=== PATIENT | female | born 1940 | race Caucasian/White ===

== ENCOUNTER → 2018-01-01 | Outpatient (CLI) | payer OTHER | LOC: CAT 11:08 | DX: R91.8 Other nonspecific abnormal finding of lung field (principal); K76.89 Other specified diseases of liver; M47.816 Spondylosis without myelopathy or radiculopathy, lumbar region; M51.36 Other intervertebral disc degeneration, lumbar region ==

== ENCOUNTER → 2018-01-02 | Outpatient (CLI) | payer OTHER | LOC: CAT 12:41 | DX: J47.9 Bronchiectasis, uncomplicated (principal); J98.4 Other disorders of lung; R91.8 Other nonspecific abnormal finding of lung field ==

== ENCOUNTER → 2018-01-14 | Outpatient (CLI) | payer OTHER ==
[2018-01-14 10:09] LABS: CREATININE 0.9 mg/dL (0.6-1.0)
== END ==
LOC: CAT 09:02
PROVIDERS: Internal Medicine Pulmonary Disease
DX: J32.2 Chronic ethmoidal sinusitis (principal); J32.3 Chronic sphenoidal sinusitis; J47.9 Bronchiectasis, uncomplicated; R91.8 Other nonspecific abnormal finding of lung field; M19.041 Primary osteoarthritis, right hand; M19.042 Primary osteoarthritis, left hand; R05 Cough

== ENCOUNTER → 2018-04-22 | Outpatient (CLI) | payer OTHER | LOC: CAT 08:28 | DX: J84.10 Pulmonary fibrosis, unspecified (principal); J47.9 Bronchiectasis, uncomplicated; K76.9 Liver disease, unspecified; R91.8 Other nonspecific abnormal finding of lung field ==

== ENCOUNTER 2018-05-09 05:24 | Outpatient (CLI) | payer OTHER ==
[~2018-05-09] VITALS: Ht 165.1 cm; Wt 54.4 kg
[~2018-05-09 05:24] MED LIST: ALLEGRA ALLERG180 MG PO; ASPIR 8181 MG PO; CALCIUM 600 +1 EAC1 PO; CARDIO TEA1 EACH PO; CENTRUM SILVER1 EAC6 PO; CITRACAL + D E1 EACH PO; FISH OIL 1,001000 M2 PO; FLONASE 0.05%50 MCG NASAL; MAXZIDE-25 MG1 EACH PO; NORVASC5 MG PO; PROLIA60 MG/1 ML SUBQ; ROBITUSSIN-COU237 ML PO; VITAMIN D2000 UNIT PO; VITAMINC500 PO
[2018-05-09 12:34] VITALS: BP 145/61
--- NOTE | 2018-05-09 18:45 | O ---
[facility] [place] [address] OPERATIVE REPORT Name: RENAE ORANTES Room #: DEP MICHAEL [facility]#: [id number] Admission: 05/09/18 ������������������ Attend Phys: Jorge Luis Bryant MD Discharge: 05/09/18 ������������������ Date of : 40 Report #: [id number] THIS REPORT FOR: //name// CC: Kelin Bryant DATE OF SERVICE: 05/09/2018 CLINICAL HISTORY: A 77-year-old white female with mild bilateral bronchiectasis, mild nodular infiltrates. Diagnostic bronchoscopy was performed along with bronchial lavage. POSTOPERATIVE DIAGNOSES: 1. Normal airways. 2. Mild secretions that appears to be white. 3. No evidence of endobronchial lesion. DESCRIPTION OF PROCEDURE: Following obtained consent and risks and benefits being explained to the patient, which include infection, bleeding, pneumothorax, procedure performed in the endoscopy suite. The patient received Diprivan IV drip for sedation per anesthesia. She also received aerosolized lidocaine to the upper airways. Topical lidocaine was also used for topical anesthetic. The bronchoscope was initially introduced to the naris with some difficulty. The nasal passage was narrow. We tried both nares. There was minimal bleeding on the right naris due to trauma. We then entered orally with a mouth block. The vocal cords were normal. Trachea was normal, Cee was normal. Left main stem bronchus, left upper lobe and left lower lobe was unremarkable. Right mainstem bronchus, right upper lobe, right middle lobe and right lower lobe were grossly unremarkable. There were mild clear whitish secretions seen bilaterally. No evidence of purulent secretion seen. No evidence of endobronchial lesion. Bronchoalveolar lavage was performed in the right middle lobe. Approximately three aliquots of 20 mL saline was used. We had adequate return in the sputum cup. Otherwise, the patient tolerated the procedure well. Vital signs and saturation throughout the study were within normal range. The bronchial wash will be sent [address] [address] [place] [address] OPERATIVE REPORT Name: RENAE ORANTES Room #: DEP [facility]#: [id number] Admission: 05/09/18 ������������������ Attend Phys: Jorge Luis Bryant MD Discharge: 05/09/18 ������������������ Date of : 40 Report #: [id number] for microbiology studies, Gram stain, culture, AFB smear, fungal smear. Cytology will be also sent. ��������������������������������������������� <ELECTRONICALLY SIGNED> ���������������������������������������� By: Jorge Luis Bryant MD ��������������������������������������������� 05/09/18 1845 1730 1807 Jorge Luis Bryant MD /nt
--- NOTE | 2018-05-13 15:06 | PATH ---
[facility] [address] [employer] [place] [address] PATHOLOGY RPT PROCEDURE Name: RENAE ORANTES Room #: DEP MICHAEL [facility].#: [id number] ������������������ Admission: 05/09/18 ������������������ Date of : 40 Discharge: 05/09/18 Report #: [id number] Path Case #: [id number] Note [facility] Accession Number: [id number] TESTS RESULT FLAG UNITS REF RANGE LAB Clinician Provided Cytology Information No. of containers..01 Other (Miscellaneous) Source: BAL RML DIAGNOSIS: BAL RML NEGATIVE FOR MALIGNANT CELLS. REACTIVE BRONCHIAL CELLS ARE PRESENT. PULMONARY MACROPHAGES (DUST CELLS) ARE PRESENT. REACTIVE SQUAMOUS CELLS ARE PRESENT. Pathologist ICD10: 02 R91.8 Signed out by: Marilu Mercado MD, Pathologist NPI- [id number] Performed by: Yaw Law, Technical Translator ([facility]) Gross description: 01 10ML, PINK, CLOUDY /LCS FLAG LEGEND: L-Low Normal,H-High Normal,LL-Alert Low,HH-Alert High <-Panic Low,>-Panic High,A-Abnormal,AA-Critical Abnormal Performed at: [address] [place] [address] Ariel England MD, [address] [address] Marilu Mercado MD, Specimen Comment: A courtesy copy of this report has been sent to Specimen Comment: [phone], , . Specimen Comment: Report sent to ,DR LIVE / DR ROSS Specimen Comment: A duplicate report has been generated due to demographic updates. Performed at: [address], [place], [place] [id number] MD Ariel England MD Phone: [phone]
== END 2018-05-09 13:57 | disposition home or self-care (01) ==
LOC: CATH 05:24 → TBA 05:25 → CATH 11:55
DX: J47.9 Bronchiectasis, uncomplicated (principal); I10 Essential (primary) hypertension; Z85.828 Personal history of other malignant neoplasm of skin; Z98.890 Other specified postprocedural states
CPT/HCPCS: 62110; 62900; 70005

== ENCOUNTER → 2018-08-26 | Outpatient (CLI) | payer OTHER | LOC: CAT 08:23 | DX: J32.9 Chronic sinusitis, unspecified (principal); H61.20 Impacted cerumen, unspecified ear; M47.812 Spondylosis without myelopathy or radiculopathy, cervical region; M43.22 Fusion of spine, cervical region; R09.82 Postnasal drip; R05 Cough ==

== ENCOUNTER → 2019-01-22 | Outpatient (CLI) | payer OTHER | LOC: CAT 10:00 | DX: J47.9 Bronchiectasis, uncomplicated (principal); R91.8 Other nonspecific abnormal finding of lung field; I25.10 Atherosclerotic heart disease of native coronary artery without angina pectoris; K76.89 Other specified diseases of liver ==

== ENCOUNTER → 2019-12-29 | Outpatient (CLI) | payer OTHER | LOC: RAD 11:44 | PROVIDERS: ATTEND Family Medicine | DX: R91.8 Other nonspecific abnormal finding of lung field (principal); J47.9 Bronchiectasis, uncomplicated ==

== ENCOUNTER → 2020-01-30 | Outpatient (CLI) | payer OTHER | LOC: CAT 10:31 | PROVIDERS: ATTEND Specialist | DX: R91.8 Other nonspecific abnormal finding of lung field (principal); I70.0 Atherosclerosis of aorta; N13.30 Unspecified hydronephrosis ==

== ENCOUNTER → 2020-02-19 | Outpatient (CLI) | payer OTHER | LOC: CAT 09:55 | PROVIDERS: ATTEND Specialist | DX: N20.0 Calculus of kidney (principal); R91.8 Other nonspecific abnormal finding of lung field; M47.816 Spondylosis without myelopathy or radiculopathy, lumbar region ==

== ENCOUNTER → 2020-06-22 | Outpatient (CLI) | payer OTHER | LOC: CAT 09:08 | PROVIDERS: ATTEND Internal Medicine | DX: J47.9 Bronchiectasis, uncomplicated (principal); R91.8 Other nonspecific abnormal finding of lung field ==

== ENCOUNTER → 2020-12-27 | Outpatient (CLI) | payer OTHER | LOC: RAD 11:48 | PROVIDERS: ATTEND Internal Medicine | DX: J47.9 Bronchiectasis, uncomplicated (principal); J98.4 Other disorders of lung ==